=== PATIENT | male | born 1955 | race American Indian/Alaskan Native ===

== ENCOUNTER 2019-03-09 07:55 | Outpatient (CLI) | payer MEDICARE, OTHER ==
--- NOTE | 2019-03-09 17:03 | Vascular Lab Report ---
PROCEDURE: RENAL VASCULATURE LTD TECHNIQUE: Duplex Doppler imaging of the kidneys and aorta was performed. HISTORY: I12.9 HYPERTENSIVE CHRONIC KIDNEY DISEASE/E83.39 PHOSPHORUS METAB COMPARISONS: None. 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 There is normal cortical t hickness. There is normal echogenicity. There are sharp systolic upstrokes in the transplant arterial waveform. The peak systolic velocity of the renal transplant artery at the anastomosis is 325 cm/s, 234 cm/s in its proximal portion, 261 cm /s in its midportion, and 198 cm/s in its distal portion. The resistive index of the intrarenal arter ies is 0.57. The peak systolic velocity of the aorta is a 89 cm/s. The peak systolic velocity ratio between the tr ansplant artery the aorta is 3.65. The [place] kidneys are atrophied and echogenic. The needle bilateral renal arteries are not well visu alized. There is resistive index for arcuate arteries of the right kidney is 0.58. The resistive inde x for arcuate arteries of the left kidney is 0.67. IMPRESSION: Elevated velocities in the transplant renal artery. No visualized narrowing on grayscale and B-mode i maging. Differential diagnosis includes stenosis or rejection. Recommend attention on follow-up larai anna. This document is electronically signed by Kaylin Marc MD., March 09 2019 05:01:13 PM ET
== END 2019-03-09 07:56 | disposition home or self-care (01) ==
LOC: VAS 07:55
PROVIDERS: ATTEND Internal Medicine Nephrology
DX: E83.39 Other disorders of phosphorus metabolism (principal); R31.9 Hematuria, unspecified
CPT/HCPCS: 93975; 93976